=== PATIENT | female | born 1965 | race Caucasian/White ===

== ENCOUNTER 2017-05-23 11:17 | Emergency (ER) | payer SELFPAY ==
[2017-05-23 11:19] VITALS: BP 128/83; PULSE 76; RESP 18; TEMP 36.8; O2SAT 98; BMI 25.1
--- NOTE | 2017-05-23 11:37 | ED.DCSUM_ITS ---
- ER Visit Summary Date of Service: 05/23/17 Chief Complaint: [] Left long fingertip foreign body concern History of Present Illness: The patient is a 51 F [] sewing with sewing machine she inadvertently had the needle go through the tip of her left long finger she is [id number] tetanus status is up-to-date she is concerned that possibly the tip of that needle could be in her finger, she has no other complaints Physical Examination: [] There is a tiny puncture wound to the very tip of the left long finger the nail now better intact I do not feel discrete foreign body the rest of her hand exam is entirely unremarkable and normal Test Results: [] Emergency Department Course and Treatment: [] Her concerns and x-rays obtained, wound care Patient has no signs of foreign body have explained her the concept of the puncture she will be started on Keflex as a precaution wound care measures and follow with her family doctor Treatment Plan: [] Disposition: [] Home stable Impression: [] puncture wound very tip of left long finger with machine sewing needle This note was generated with [employer] dictation software. It may contain incorrect words, spelling, and punctuation that were not noted in review of the chart prior to signing ED Disposition - Plan for ED Patient: Chief Complaint: Foreign Body Referrals: Aston Bui MD [Primary Care Provider] -
--- NOTE | 2017-05-23 11:52 | RAD_ITS ---
STUDY: X-RAY - LEFT HAND REASON FOR EXAM: Female, 51 years old. Showing needle went into the nail. TECHNIQUE: 3 view(s) of the hand. COMPARISON: 05 February 2017 FINDINGS: Normal radiocarpal articulation. Normal distal radioulnar joint. Normal visualized carpal bones. Normal carpal articulations Normal carpometacarpal articulation of the thumb. Normal second through fifth carpometacarpal joints. Normal metacarpi. Normal metacarpophalangeal joint of the thumb. Normal interphalangeal joint of the thumb. Normal proximal and distal phalanges of the thumb. Normal metacarpophalangeal joints of the second through fifth fingers. Normal proximal and distal interphalangeal joints of the second through fifth fingers. Normal phalanges of the second through fifth fingers. The soft tissue structures are unremarkable. RAD/Hand Min 3 Views IMPRESSION: No evidence of acute osseous process or foreign body. Electronically Signed: Chino Moy DO at 12:31 EDT , Service support ,
--- NOTE | 2017-05-23 12:13 | ED.DEP ---
ED Disposition - Plan for ED Patient: Chief Complaint: Foreign Body Instructions: ED Wound Puncture General Prescriptions: Cephalexin [Keflex] 500 mg PO Q6 #30 cap Referrals: Aston Bui MD [Primary Care Provider] -
== END 2017-05-23 12:25 | disposition home or self-care (01) ==
LOC: ED 12:20
PROVIDERS: Emergency Provider Emergency Medicine; Family Provider Family Medicine; PCP Family Medicine
DX: S61.233A Puncture wound without foreign body of left middle finger without damage to nail, initial encounter (principal); W31.89XA Contact with other specified machinery, initial encounter; Y93.D2 Activity, sewing; Y92.009 Unspecified place in unspecified non-institutional (private) residence as the place of occurrence of the external cause; Y99.8 Other external cause status
CPT/HCPCS: 73130; 99281